=== PATIENT | female | born 1955 | race Caucasian/White ===

== ENCOUNTER 2020-10-17 06:56 | Inpatient (IN) | payer OTHER, MEDICARE ==
[~2020-10-17] VITALS: Ht 160 cm; Wt 108.3 kg
[2020-10-17] MEDS: SODIUM CHLORIDE 0.9% 1,000 ML IV SCH ×3 (07:00→21:38)
[2020-10-17] MEDS ORDERED: OXYcodone/APAP 5/325MG TABLET PO ONE (08:30)
[2020-10-17] MEDS ORDERED: SODIUM CHLORIDE 0.9% 1,000ML IVBOLUS ONE (08:30)
[2020-10-17 08:56] LABS: BASOPHILS % (AUTO) 1 % (0-1); EOSINOPHILS % (AUTO) 0 % (1-7); LYMPHOCYTES % (AUTO) 9 % (22-44); MEAN CORPUSCULAR HEMOGLOBIN 32.1 pg (27.0-34.8); MEAN CORPUSCULAR HGB CONC 34.8 g/dL (32.4-35.8); MONOCYTES % (AUTO) 14 % (2-9); NEUTROPHILS % (AUTO) 76 % (42-75); PLATELET COUNT 335 x10^3/uL (130-400); RED BLOOD COUNT 4.01 x10^6/uL (3.82-5.3); RED CELL DISTRIBUTION WIDTH 12.6 % (9.6-15.2)
[2020-10-17] MEDS ORDERED: CEFTRIAXONE PMX 1GM/50ML 50 ML IV ONE (09:00)
--- NOTE | 2020-10-17 09:00 | NUR ---
REPORT GIVEN TO [facility]
[2020-10-17 09:01] LABS: MD NO
[2020-10-17 09:07] LABS: ALANINE AMINOTRANSFERASE 37 U/L (12-78); ALBUMIN 3.1 g/dL (3.4-5.0); ANION GAP 6 mmol/L (5-15); CHLORIDE 99 mmol/L (98-107); CREATININE 0.78 mg/dL (0.55-1.02)
[2020-10-17] MEDS ORDERED: OXYcodone/APAP 5/325MG TABLET ONE (09:13)
[2020-10-17] MEDS ORDERED: CEFTRIAXONE PMX 1GM/50ML 50 ML ONE (09:13)
[2020-10-17 09:14] LABS: ALKALINE PHOSPHATASE 136 U/L (45-117); BILIRUBIN,TOTAL 0.4 mg/dL (0.2-1.0); C-REACTIVE PROTEIN, QUANT 8.84 mg/dL (0.02-0.49); TOTAL PROTEIN 7.1 g/dL (6.4-8.2)
[2020-10-17 09:31] LABS: D-DIMER (DIC) 0.55 ug/mlFEU (0.00-0.52); PROTIME 10.1 Seconds (9.6-11.5)
[2020-10-17 12:22] LABS: MICROSCOPIC INDICATED
[2020-10-17] MEDS ORDERED: ENOXAPARIN 40 MG/0.4 ML SQ SCH (13:30)
[2020-10-17] MEDS ORDERED: DEXAMETHASONE 4 MG/ML, 1ML IVPush ONE (13:30)
[2020-10-17] MEDS ORDERED: DOCUSATE 100 MG CAPSULE PO PRN (13:30)
[2020-10-17] MEDS ORDERED: ENALAPRILAT 1.25 MG/ML, 2ML IVPush PRN (13:30)
[2020-10-17] MEDS ORDERED: PHARMACY MAY ADJ FOR RENAL FX MC PRN (13:30)
[2020-10-17] MEDS ORDERED: LABETALOL 5MG/ML, 20ML IVPush PRN (13:30)
[2020-10-17] MEDS ORDERED: POLYETHYLENE GLYCOL 17 GM PACKET PO PRN (13:30)
[2020-10-17] MEDS ORDERED: ONDANSETRON ODT 4 MG PO PRN (13:30)
[2020-10-17] MEDS ORDERED: ACETAMINOPHEN 325 MG TABLET PO PRN (13:30)
[2020-10-17] MEDS ORDERED: ONDANSETRON 2MG/ML, 2ML IVPush PRN (13:30)
[2020-10-17] MEDS ORDERED: BISACODYL 10 MG SUPP PR PRN (13:30)
[2020-10-17] MEDS ORDERED: GUAIFENESIN/DM 200-20MG, 10ML UDC PO PRN (13:30)
[2020-10-17 13:52] LABS: TROPONIN I < 0.015 ng/mL (0.000-0.045)
[2020-10-17] MEDS: CEFTRIAXONE PMX 1GM/50ML 50 ML IVPB SCH (14:38)
[2020-10-17] MEDS ORDERED: ENOXAPARIN 40 MG/0.4 ML ONE (14:42)
[2020-10-17] MEDS ORDERED: DEXAMETHASONE 4 MG/ML, 1ML ONE (14:42)
[2020-10-17] MEDS ORDERED: KETOROLAC 30 MG/1 ML ONE (14:43)
[2020-10-17] MEDS ORDERED: GUAIFENESIN ER 600 MG TABLET ONE (14:43)
[2020-10-17] MEDS: AZITHROMYCIN 500 MG in SODIUM CHLORIDE 0.9% 250 ML IV SCH (14:58)
[2020-10-17] MEDS: GUAIFENESIN ER 600 MG TABLET PO SCH ×2 (14:58→21:31)
[2020-10-17] MEDS: KETOROLAC 30 MG/1 ML IV PRN (14:58)
[2020-10-17] MEDS: CHOLECALCIFEROL 5,000u TAB PO SCH (16:48)
[2020-10-17] MEDS ORDERED: AMLO-210 PO (19:52)
[2020-10-17] MEDS ORDERED: LOVA20TA2 PO (19:52)
[2020-10-17] MEDS ORDERED: IBUP-1223 PO (19:52)
[2020-10-17] MEDS ORDERED: LEVO75TA5 PO (19:52)
[2020-10-17] MEDS ORDERED: GABA-827 PO (19:52)
[2020-10-17] MEDS ORDERED: LISI10TA2 PO (19:52)
[2020-10-17] MEDS ORDERED: MOME13HF2 INH (19:54)
[2020-10-17 20:19] VITALS: BP 127/74
[2020-10-17] MEDS: MELATONIN 5 MG TABLET PO SCH (21:28)
[2020-10-17] MEDS: ASCORBIC ACID 500 MG TABLET PO SCH (21:28)
[2020-10-17] MEDS: BUTALB/APAP/CAFFEINE 50MG/325MG/40MG PO PRN (21:28)
[2020-10-18 00:43] VITALS: BP 120/79
[2020-10-18] MEDS: ENOXAPARIN 30 MG/0.3 ML SQ SCH ×2 (06:03→16:29)
[2020-10-18] MEDS: LEVOTHYROXINE 75 MCG TABLET PO SCH (06:03)
[2020-10-18] MEDS: SODIUM CHLORIDE 0.9% 1,000 ML IV SCH (06:09)
[2020-10-18 06:26] LABS: BASOPHILS % (AUTO) 1 % (0-1); EOSINOPHILS % (AUTO) 0 % (1-7); LYMPHOCYTES % (AUTO) 9 % (22-44); MEAN CORPUSCULAR HEMOGLOBIN 31.9 pg (27.0-34.8); MEAN CORPUSCULAR HGB CONC 34.3 g/dL (32.4-35.8); MONOCYTES % (AUTO) 9 % (2-9); NEUTROPHILS % (AUTO) 81 % (42-75); PLATELET COUNT 321 x10^3/uL (130-400); RED CELL DISTRIBUTION WIDTH 12.6 % (9.6-15.2)
[2020-10-18 06:29] LABS: MD NO
[2020-10-18 06:35] LABS: ALANINE AMINOTRANSFERASE 35 U/L (12-78); ALBUMIN 2.7 g/dL (3.4-5.0); ANION GAP 8 mmol/L (5-15); CALCIUM 8.3 mg/dL (8.5-10.1); CHLORIDE 104 mmol/L (98-107); CREATININE 0.66 mg/dL (0.55-1.02)
[2020-10-18 06:37] LABS: ALKALINE PHOSPHATASE 131 U/L (45-117); BILIRUBIN,TOTAL 0.3 mg/dL (0.2-1.0); TOTAL PROTEIN 6.5 g/dL (6.4-8.2)
[2020-10-18] MEDS: ASCORBIC ACID 500 MG TABLET PO SCH ×2 (08:28→21:48)
[2020-10-18] MEDS: ZINC SULFATE 220 MG CAPSULE PO SCH (08:28)
[2020-10-18] MEDS: GUAIFENESIN ER 600 MG TABLET PO SCH ×2 (08:28→21:48)
[2020-10-18] MEDS: CHOLECALCIFEROL 5,000u TAB PO SCH (08:28)
[2020-10-18] MEDS: DEXAMETHASONE 4 MG/ML, 1ML IVPush SCH (08:29)
[2020-10-18 08:40] VITALS: BP 155/97
[2020-10-18] MEDS ORDERED: BREO INH SCH (09:00)
[2020-10-18] MEDS ORDERED: AMLODIPINE 5 MG TABLET PO SCH (09:00)
[2020-10-18] MEDS ORDERED: GABAPENTIN 300 MG CAPSULE PO SCH (09:00)
[2020-10-18] MEDS ORDERED: LISINOPRIL 10 MG TABLET PO SCH (09:00)
[2020-10-18] MEDS: FLUTICASONE/VILANTEROL 200-25MCG/INH INH SCH (09:29)
[2020-10-18] MEDS: BACITRACIN/POLYMIXIN B SULFATE OINT 14 GM TP SCH ×3 (12:10→21:48)
[2020-10-18] MEDS: GABAPENTIN 400 MG CAPSULE PO SCH ×2 (15:02→21:48)
[2020-10-18] MEDS: AMLODIPINE 5 MG TABLET PO SCH (15:02)
[2020-10-18] MEDS: CEFTRIAXONE PMX 1GM/50ML 50 ML IVPB SCH (15:03)
[2020-10-18] MEDS: AZITHROMYCIN 500 MG in SODIUM CHLORIDE 0.9% 250 ML IV SCH (15:03)
[2020-10-18] MEDS ORDERED: SODIUM CHLORIDE 0.9% 1,000 ML IV SCH (16:00)
[2020-10-18 18:58] VITALS: BP 117/72
[2020-10-18] MEDS: LOVASTATIN 20 MG TABLET PO SCH (21:48)
[2020-10-18] MEDS: MELATONIN 5 MG TABLET PO SCH (21:48)
[2020-10-19 00:38] VITALS: BP 116/68
[2020-10-19] MEDS: LEVOTHYROXINE 75 MCG TABLET PO SCH (04:59)
[2020-10-19 06:11] LABS: BASOPHILS % (AUTO) 0 % (0-1); EOSINOPHILS % (AUTO) 0 % (1-7); LYMPHOCYTES % (AUTO) 10 % (22-44); MEAN CORPUSCULAR HGB CONC 34.5 g/dL (32.4-35.8); MEAN PLATELET VOLUME 7.2 fL (7.4-10.4); MONOCYTES % (AUTO) 11 % (2-9); NEUTROPHILS % (AUTO) 79 % (42-75); PLATELET COUNT 381 x10^3/uL (130-400); RED BLOOD COUNT 3.73 x10^6/uL (3.82-5.3); RED CELL DISTRIBUTION WIDTH 12.9 % (9.6-15.2)
[2020-10-19 06:16] LABS: ALANINE AMINOTRANSFERASE 36 U/L (12-78); ALBUMIN 2.9 g/dL (3.4-5.0); ANION GAP 10 mmol/L (5-15); CALCIUM 8.4 mg/dL (8.5-10.1); CHLORIDE 107 mmol/L (98-107); CREATININE 0.76 mg/dL (0.55-1.02)
[2020-10-19 06:18] LABS: ALKALINE PHOSPHATASE 121 U/L (45-117); BILIRUBIN,TOTAL 0.3 mg/dL (0.2-1.0); TOTAL PROTEIN 6.6 g/dL (6.4-8.2)
[2020-10-19 07:31] VITALS: BP 139/90
[2020-10-19 07:50] LABS: MD SCAN
[2020-10-19] MEDS ORDERED: LISINOPRIL 10 MG TABLET PO SCH (09:00)
[2020-10-19] MEDS: BACITRACIN/POLYMIXIN B SULFATE OINT 14 GM TP SCH ×3 (09:23→21:27)
[2020-10-19] MEDS: CHOLECALCIFEROL 5,000u TAB PO SCH (09:23)
[2020-10-19] MEDS: GABAPENTIN 400 MG CAPSULE PO SCH ×3 (09:23→21:24)
[2020-10-19] MEDS: AMLODIPINE 5 MG TABLET PO SCH (09:23)
[2020-10-19] MEDS: ENOXAPARIN 30 MG/0.3 ML SQ SCH ×2 (09:23→21:27)
[2020-10-19] MEDS: FLUTICASONE/VILANTEROL 200-25MCG/INH INH SCH (09:24)
[2020-10-19] MEDS: GUAIFENESIN ER 600 MG TABLET PO SCH ×2 (09:24→21:25)
[2020-10-19] MEDS: ZINC SULFATE 220 MG CAPSULE PO SCH (09:24)
[2020-10-19] MEDS: DEXAMETHASONE 4 MG/ML, 1ML IVPush SCH (09:24)
[2020-10-19] MEDS: ASCORBIC ACID 500 MG TABLET PO SCH ×2 (09:24→21:25)
[2020-10-19 09:39] VITALS: BP 107/69
[2020-10-19] MEDS: CEFTRIAXONE PMX 1GM/50ML 50 ML IVPB SCH (14:09)
[2020-10-19] MEDS: AZITHROMYCIN 500 MG in SODIUM CHLORIDE 0.9% 250 ML IV SCH (15:14)
[2020-10-19 15:17] VITALS: BP 129/72
[2020-10-19] MEDS: KETOROLAC 30 MG/1 ML IV PRN (15:23)
[2020-10-19] MEDS: BUTALB/APAP/CAFFEINE 50MG/325MG/40MG PO PRN (15:23)
[2020-10-19 19:15] VITALS: BP 125/76
[2020-10-19] MEDS: MELATONIN 5 MG TABLET PO SCH (21:25)
[2020-10-19] MEDS: LISINOPRIL 10 MG TABLET PO SCH (21:26)
[2020-10-19] MEDS: LOVASTATIN 20 MG TABLET PO SCH (21:27)
[2020-10-20] MEDS ORDERED: TEMAZEPAM 15 MG CAPSULE PO ONE (00:30)
[2020-10-20 00:49] VITALS: BP 127/78
[2020-10-20] MEDS: LEVOTHYROXINE 75 MCG TABLET PO SCH (06:13)
[2020-10-20] MEDS: CHOLECALCIFEROL 5,000u TAB PO SCH (07:37)
[2020-10-20] MEDS: ASCORBIC ACID 500 MG TABLET PO SCH ×2 (07:37→20:40)
[2020-10-20] MEDS: KETOROLAC 30 MG/1 ML IV PRN (07:38)
[2020-10-20] MEDS: FLUTICASONE/VILANTEROL 200-25MCG/INH INH SCH (07:38)
[2020-10-20] MEDS: GABAPENTIN 400 MG CAPSULE PO SCH ×2 (07:38→16:25)
[2020-10-20] MEDS: DEXAMETHASONE 4 MG/ML, 1ML IVPush SCH (07:38)
[2020-10-20] MEDS: BACITRACIN/POLYMIXIN B SULFATE OINT 14 GM TP SCH ×3 (07:38→21:00)
[2020-10-20] MEDS: ENOXAPARIN 30 MG/0.3 ML SQ SCH ×2 (07:39→20:47)
[2020-10-20] MEDS: BUTALB/APAP/CAFFEINE 50MG/325MG/40MG PO PRN (07:39)
[2020-10-20] MEDS: GUAIFENESIN ER 600 MG TABLET PO SCH ×2 (07:39→20:39)
[2020-10-20] MEDS: AMLODIPINE 5 MG TABLET PO SCH (07:39)
[2020-10-20] MEDS: ZINC SULFATE 220 MG CAPSULE PO SCH (07:39)
[2020-10-20 07:58] VITALS: BP 122/88
[2020-10-20] MEDS: BENZONATATE 100 MG CAPSULE PO SCH ×3 (13:13→20:39)
[2020-10-20] MEDS: CEFTRIAXONE PMX 1GM/50ML 50 ML IVPB SCH (13:18)
[2020-10-20 13:28] VITALS: BP 135/83
[2020-10-20] MEDS: AZITHROMYCIN 500 MG in SODIUM CHLORIDE 0.9% 250 ML IV SCH (15:06)
[2020-10-20] MEDS: GUAIFENESIN/COD200MG-20MG/10ML LIQUID PO PRN (19:15)
[2020-10-20 19:56] VITALS: BP 137/86
[2020-10-20] MEDS: LISINOPRIL 10 MG TABLET PO SCH (20:40)
[2020-10-20] MEDS: LOVASTATIN 20 MG TABLET PO SCH (20:40)
[2020-10-20] MEDS: MELATONIN 5 MG TABLET PO SCH (20:47)
[2020-10-21] MEDS: GABAPENTIN 400 MG CAPSULE PO SCH ×4 (00:06→21:09)
[2020-10-21 01:06] VITALS: BP 112/75
[2020-10-21 06:06] VITALS: BP 136/88
[2020-10-21] MEDS: LEVOTHYROXINE 75 MCG TABLET PO SCH (06:09)
[2020-10-21 07:21] VITALS: BP 121/83
[2020-10-21] MEDS: FLUTICASONE/VILANTEROL 200-25MCG/INH INH SCH (08:42)
[2020-10-21] MEDS: AMLODIPINE 5 MG TABLET PO SCH (08:43)
[2020-10-21] MEDS: GUAIFENESIN ER 600 MG TABLET PO SCH ×2 (08:43→21:08)
[2020-10-21] MEDS: BENZONATATE 100 MG CAPSULE PO SCH ×3 (08:43→21:08)
[2020-10-21] MEDS: ASCORBIC ACID 500 MG TABLET PO SCH ×2 (08:43→21:08)
[2020-10-21] MEDS: CHOLECALCIFEROL 5,000u TAB PO SCH (08:43)
[2020-10-21] MEDS: ENOXAPARIN 30 MG/0.3 ML SQ SCH ×2 (08:43→21:08)
[2020-10-21] MEDS: BACITRACIN/POLYMIXIN B SULFATE OINT 14 GM TP SCH ×3 (08:44→21:11)
[2020-10-21] MEDS: ZINC SULFATE 220 MG CAPSULE PO SCH (08:44)
[2020-10-21] MEDS: DEXAMETHASONE 4 MG/ML, 1ML IVPush SCH (08:44)
[2020-10-21 12:14] LABS: C-REACTIVE PROTEIN, QUANT 1.1 mg/dL (0.02-0.49)
[2020-10-21] MEDS: KETOROLAC 30 MG/1 ML IV PRN (13:27)
[2020-10-21] MEDS: CEFTRIAXONE PMX 1GM/50ML 50 ML IVPB SCH (13:28)
[2020-10-21 13:30] VITALS: BP 117/79
[2020-10-21] MEDS: AZITHROMYCIN 500 MG in SODIUM CHLORIDE 0.9% 250 ML IV SCH (14:44)
[2020-10-21] MEDS: GUAIFENESIN/COD200MG-20MG/10ML LIQUID PO PRN (19:41)
[2020-10-21 20:55] VITALS: BP 132/90
[2020-10-21] MEDS: LOVASTATIN 20 MG TABLET PO SCH (21:07)
[2020-10-21] MEDS: LISINOPRIL 10 MG TABLET PO SCH (21:08)
[2020-10-21] MEDS: MELATONIN 5 MG TABLET PO SCH (21:08)
[2020-10-22 01:23] VITALS: BP 112/68
[2020-10-22 05:43] VITALS: BP 114/70
[2020-10-22] MEDS: LEVOTHYROXINE 75 MCG TABLET PO SCH (05:44)
[2020-10-22 06:17] LABS: BASOPHILS % (AUTO) 1 % (0-1); EOSINOPHILS % (AUTO) 0 % (1-7); LYMPHOCYTES % (AUTO) 13 % (22-44); MEAN CORPUSCULAR HEMOGLOBIN 32.3 pg (27.0-34.8); MEAN CORPUSCULAR HGB CONC 34.4 g/dL (32.4-35.8); MEAN PLATELET VOLUME 6.8 fL (7.4-10.4); MONOCYTES % (AUTO) 10 % (2-9); NEUTROPHILS % (AUTO) 76 % (42-75); PLATELET COUNT 449 x10^3/uL (130-400); RED BLOOD COUNT 3.77 x10^6/uL (3.82-5.3); RED CELL DISTRIBUTION WIDTH 12.9 % (9.6-15.2)
[2020-10-22 06:29] LABS: MD NO
[2020-10-22 06:29] LABS: CHLORIDE 104 mmol/L (98-107)
[2020-10-22 06:36] LABS: ANION GAP 6 mmol/L (5-15); CALCIUM 8.6 mg/dL (8.5-10.1); CREATININE 0.66 mg/dL (0.55-1.02)
[2020-10-22 08:06] VITALS: BP 127/86
[2020-10-22] MEDS: GABAPENTIN 400 MG CAPSULE PO SCH ×3 (08:12→21:22)
[2020-10-22] MEDS: ASCORBIC ACID 500 MG TABLET PO SCH ×2 (08:12→21:22)
[2020-10-22] MEDS: GUAIFENESIN ER 600 MG TABLET PO SCH ×2 (08:12→21:23)
[2020-10-22] MEDS: BENZONATATE 100 MG CAPSULE PO SCH ×3 (08:12→21:23)
[2020-10-22] MEDS: ZINC SULFATE 220 MG CAPSULE PO SCH (08:13)
[2020-10-22] MEDS: CHOLECALCIFEROL 5,000u TAB PO SCH (08:13)
[2020-10-22] MEDS: FLUTICASONE/VILANTEROL 200-25MCG/INH INH SCH (08:13)
[2020-10-22] MEDS: AMLODIPINE 5 MG TABLET PO SCH (08:13)
[2020-10-22] MEDS: ENOXAPARIN 30 MG/0.3 ML SQ SCH ×2 (08:13→21:22)
[2020-10-22] MEDS: DEXAMETHASONE 4 MG/ML, 1ML IVPush SCH (08:13)
[2020-10-22] MEDS: BACITRACIN/POLYMIXIN B SULFATE OINT 14 GM TP SCH ×3 (08:13→21:23)
[2020-10-22] MEDS: CEFTRIAXONE PMX 1GM/50ML 50 ML IVPB SCH (13:27)
[2020-10-22] MEDS: KETOROLAC 30 MG/1 ML IV PRN (13:27)
[2020-10-22 13:52] VITALS: BP 115/81
[2020-10-22] MEDS: AZITHROMYCIN 500 MG in SODIUM CHLORIDE 0.9% 250 ML IV SCH (14:37)
[2020-10-22 19:00] VITALS: BP 122/78
[2020-10-22] MEDS: GUAIFENESIN/COD200MG-20MG/10ML LIQUID PO PRN (19:09)
[2020-10-22 21:16] VITALS: BP 126/79
[2020-10-22] MEDS: MELATONIN 5 MG TABLET PO SCH (21:22)
[2020-10-22] MEDS: LOVASTATIN 20 MG TABLET PO SCH (21:23)
[2020-10-22] MEDS: LISINOPRIL 10 MG TABLET PO SCH (21:29)
[2020-10-23 00:13] VITALS: BP 119/77
[2020-10-23 06:08] VITALS: BP 122/74
[2020-10-23] MEDS: LEVOTHYROXINE 75 MCG TABLET PO SCH (06:08)
[2020-10-23 07:38] VITALS: BP 124/85
[2020-10-23] MEDS: BACITRACIN/POLYMIXIN B SULFATE OINT 14 GM TP SCH ×3 (09:00→20:06)
[2020-10-23] MEDS: ASCORBIC ACID 500 MG TABLET PO SCH ×2 (12:09→20:02)
[2020-10-23] MEDS: ZINC SULFATE 220 MG CAPSULE PO SCH (12:10)
[2020-10-23] MEDS: DEXAMETHASONE 4 MG/ML, 1ML IVPush SCH (12:10)
[2020-10-23] MEDS: CHOLECALCIFEROL 5,000u TAB PO SCH (12:11)
[2020-10-23] MEDS: GUAIFENESIN ER 600 MG TABLET PO SCH ×2 (12:11→20:02)
[2020-10-23] MEDS: AMLODIPINE 5 MG TABLET PO SCH (12:11)
[2020-10-23] MEDS: BENZONATATE 100 MG CAPSULE PO SCH ×3 (12:12→20:02)
[2020-10-23] MEDS: GABAPENTIN 400 MG CAPSULE PO SCH ×3 (12:12→20:02)
[2020-10-23] MEDS: FLUTICASONE/VILANTEROL 200-25MCG/INH INH SCH (12:24)
[2020-10-23] MEDS: ENOXAPARIN 30 MG/0.3 ML SQ SCH ×2 (12:28→20:02)
[2020-10-23 13:35] VITALS: BP 96/62
[2020-10-23] MEDS: CEFTRIAXONE PMX 1GM/50ML 50 ML IVPB SCH (15:39)
[2020-10-23] MEDS: AZITHROMYCIN 500 MG in SODIUM CHLORIDE 0.9% 250 ML IV SCH (17:34)
[2020-10-23] MEDS: MELATONIN 5 MG TABLET PO SCH (20:02)
[2020-10-23] MEDS: LOVASTATIN 20 MG TABLET PO SCH (20:02)
[2020-10-23] MEDS: LISINOPRIL 10 MG TABLET PO SCH (20:02)
[2020-10-23 20:06] VITALS: BP 119/74
[2020-10-24 03:09] VITALS: BP 113/75
[2020-10-24] MEDS: LEVOTHYROXINE 75 MCG TABLET PO SCH (05:56)
[2020-10-24 08:09] VITALS: BP 125/85
[2020-10-24] MEDS: BENZONATATE 100 MG CAPSULE PO SCH ×2 (09:52→16:11)
[2020-10-24] MEDS: CHOLECALCIFEROL 5,000u TAB PO SCH (09:52)
[2020-10-24] MEDS: GUAIFENESIN ER 600 MG TABLET PO SCH (09:53)
[2020-10-24] MEDS: ASCORBIC ACID 500 MG TABLET PO SCH (09:53)
[2020-10-24] MEDS: GABAPENTIN 400 MG CAPSULE PO SCH ×2 (09:54→16:11)
[2020-10-24] MEDS: AMLODIPINE 5 MG TABLET PO SCH (09:54)
[2020-10-24] MEDS: DEXAMETHASONE 4 MG/ML, 1ML IVPush SCH (09:54)
[2020-10-24] MEDS: FLUTICASONE/VILANTEROL 200-25MCG/INH INH SCH (09:56)
[2020-10-24] MEDS: ENOXAPARIN 30 MG/0.3 ML SQ SCH (09:56)
[2020-10-24] MEDS: BACITRACIN/POLYMIXIN B SULFATE OINT 14 GM TP SCH ×2 (09:57→16:20)
[2020-10-24] MEDS: ZINC SULFATE 220 MG CAPSULE PO SCH (13:53)
[2020-10-24] MEDS: CEFTRIAXONE PMX 1GM/50ML 50 ML IVPB SCH (13:53)
[2020-10-24 15:51] VITALS: BP 137/88
[2020-10-24] MEDS: AZITHROMYCIN 500 MG in SODIUM CHLORIDE 0.9% 250 ML IV SCH (16:17)
[2020-10-24] MEDS ORDERED: CHOL10003 PO (17:26)
[2020-10-24] MEDS ORDERED: ZINC220C7 PO (17:26)
[2020-10-24] MEDS ORDERED: CEFD300C37 PO (17:26)
[2020-10-24] MEDS ORDERED: ASCO100018 PO (17:26)
[2020-10-24] MEDS ORDERED: DEXA2TAB PO (17:26)
== END 2020-10-24 19:31 | disposition home or self-care (01) | DRG 177 ==
LOC: ED 09:14 → EDIP 10:15 → 3N 18:38
PROVIDERS: ADMIT Hospitalist; ATTEND Hospitalist
DX: U07.1 COVID-19 (principal); J12.89 Other viral pneumonia; J96.01 Acute respiratory failure with hypoxia; Z68.41 Body mass index [BMI] 40.0-44.9, adult; E87.1 Hypo-osmolality and hyponatremia; E03.9 Hypothyroidism, unspecified; E66.01 Morbid (severe) obesity due to excess calories; E78.00 Pure hypercholesterolemia, unspecified; E78.5 Hyperlipidemia, unspecified; G89.29 Other chronic pain; X16.XXXA Contact with hot heating appliances, radiators and pipes, initial encounter; I10 Essential (primary) hypertension; J45.909 Unspecified asthma, uncomplicated; Z80.51 Family history of malignant neoplasm of kidney; Z80.6 Family history of leukemia; Y93.89 Activity, other specified; Y92.89 Other specified places as the place of occurrence of the external cause; Y99.8 Other external cause status
CPT/HCPCS: 36415; 71045; 80048; 80053; 81001; 82728; 83605; 83615; 84145; 84484; 85025; 85049; 85379; 85384; 85610; 85730; 86140; 87040; 87086; 93005; 96360; 99285; G0378; J0456; J0696; J1100; J1650; J1885; J2405; J7030; J7050; Q0177; U0003